=== PATIENT | female | born 1950 | race American Indian/Alaskan Native ===

== ENCOUNTER 2016-09-25 11:25 | Outpatient (CLI) | payer MEDICARE ==
--- NOTE | 2016-09-25 13:19 | XRay Report ---
LUMBAR SPINE WITH OBLIQUES 5 VIEWS: 09/25/16 11:25:00 CLINICAL: Back pain. FINDINGS: Normal vertebral body height and alignment. The disc spaces are normal except for some widening at the L4-5 disc space and a small anterior osteophyte. The pedicles are intact. No fracture. Multi-level facet joint sclerosis. Bilateral neural foraminal stenosis at L4-5 and L5-S1. Heavy calcification of the abdominal aorta. IMPRESSION: Lower lumbar facet joint arthropathy and bilateral neural foraminal stenosis. L4-5 degenerative disc disease.
--- NOTE | 2016-09-25 13:31 | XRay Report ---
Cervical spine 2 views: History: Spinal stenosis. Findings: Osteopenia. Height of vertebral bodies is normal. Marked decrease in height of C3-C4. Sclerotic adjacent articular surfaces with osteophytes suggestive of severe cervical spondylosis. Mild cervical spondylosis at C4-C5 and C5-C6. Normal prevertebral soft tissue. No fracture. Impression: Cervical spondylosis. Most pronounced at C3-C4.
== END 2016-09-25 11:26 | disposition home or self-care (01) ==
LOC: SPVIMAG 11:25
PROVIDERS: ATTEND Internal Medicine
DX: M48.02 Spinal stenosis, cervical region (principal); M48.06 Spinal stenosis, lumbar region; M47.892 Other spondylosis, cervical region; M51.36 Other intervertebral disc degeneration, lumbar region; M12.88 Other specific arthropathies, not elsewhere classified, other specified site; M25.78 Osteophyte, vertebrae; I70.0 Atherosclerosis of aorta; I12.0 Hypertensive chronic kidney disease with stage 5 chronic kidney disease or end stage renal disease; N18.6 End stage renal disease; E78.00 Pure hypercholesterolemia, unspecified
CPT/HCPCS: 72040; 72110

== ENCOUNTER 2020-08-28 16:25 | Emergency (ER) | payer MEDICARE ==
--- NOTE | 2020-08-28 17:40 | Emergency Department Report ---
ED General Adult HPI - General Chief complaint: Medical Clearance Stated complaint: R ARM BLEEDING Time Seen by Provider: 08/28/20 17:37 Source: patient, EMS Mode of arrival: Stretcher Limitations: No Limitations - History of Present Illness Initial comments: 69-year-old female with significant bleeding from the proximal site of her hemodialysis shunt. She was sent to this facility for further evaluation after a clamp was applied. She was left undisturbed for some time while labs were pending. She seemed to have hemostasis with the clamp. However when the clamp was removed the patient had apparent arterial bleeding from the proximal access site. Pressure was applied. Patient had no complaints at the time of my evaluation. Indeed, she was s peaking on her cell phone without distress. She stated this was the first time this is ever happened since her graft was placed [address] Flowers. -: Sudden Severity scale (0 -10): 0 - Related Data Home Medications Medication Instructions Recorded Confirmed Last Taken Aspirin [Aspirin BABY CHEW TAB] 81 mg PO DAILY 04/04/13 07/26/13 07/27/13 Atorvastatin Calcium [Lipitor] 20 mg PO QHS 04/04/13 07/26/13 07/27/13 Cinacalcet HCl [Sensipar] 60 mg PO DAILY 04/04/13 07/26/13 07/27/13 carvediloL [Coreg] 6.25 mg PO DAILY 04/04/13 07/26/13 07/27/13 Insulin Aspart Prot/Aspart(Nf) 30 - 45 units SC BID 07/26/13 07/26/13 07/27/13 [NovoLOG Mix 70/30 VIAL] Pantoprazole [Protonix] 1 tab PO DAILY 07/26/13 07/26/13 07/27/13 Vit B Complx C/Folic Acid/Zinc 1 tab PO Q48HR 07/26/13 07/26/13 07/27/13 [Dialyvite 800-Zinc 15 mg Tab] Previous Rx's Medication Instructions Recorded Last Taken Type Albuterol Mdi (or & Nicu Only) 2 puff IH QID PRN #2 inhalation 04/05/13 Unknown Rx [ProAir HFA Inhaler] Allergies Allergy/AdvReac Type Severity Reaction Status Date / Time No Known Allergies Allergy Verified 06/30/14 11:38 ED Review of Systems ROS: Stated complaint: R ARM BLEEDING Other details as noted in HPI Constitutional: denies: chills, fever Eyes: eye discharge Respiratory: denies: cough, shortness of breath Cardiovascular: denies: chest pain, palpitations Endocrine: no symptoms reported Gastrointestinal: denies: abdominal pain, vomiting Genitourinary: as per HPI (Hemodialysis patient). denies: discharge Musculoskeletal: denies: back pain, joint swelling, arthralgia Skin: denies: rash, lesions Neurological: denies: headache, weakness Hematological/Lymphatic: denies: easy bleeding, easy bruising ED Past Medical Hx - Past Medical History Hx Hypertension: Yes Hx Congestive Heart Failure: Yes Hx Diabetes: Yes Hx Renal Disease: Yes (hemodialysis Friday, Friday) Additional medical history: High cholesterol, sleep apnea, history of pulmonary edema - Surgical History Hx Appendectomy: Yes (2007) Additional Surgical History: Right arm AV shunt. HYSTERECTOMY - Social History Smoking Status: Never Smoker Substance Use Type: None - Medications Home Medications: Home Medications Medication Instructions Recorded Confirmed Last Taken Type Aspirin [Aspirin BABY CHEW TAB] 81 mg PO DAILY 04/04/13 07/26/13 07/27/13 History Atorvastatin Calcium [Lipitor] 20 mg PO QHS 04/04/13 07/26/13 07/27/13 History Cinacalcet HCl [Sensipar] 60 mg PO DAILY 04/04/13 07/26/13 07/27/13 History carvediloL [Coreg] 6.25 mg PO DAILY 04/04/13 07/26/13 07/27/13 History Albuterol Mdi (or & Nicu Only) 2 puff IH QID PRN #2 inhalation 04/05/13 07/26/13 Unknown Rx [ProAir HFA Inhaler] Insulin Aspart Prot/Aspart(Nf) 30 - 45 units SC BID 07/26/13 07/26/13 07/27/13 History [NovoLOG Mix 70/30 VIAL] Pantoprazole [Protonix] 1 tab PO DAILY 07/26/13 07/26/13 07/27/13 History Vit B Complx C/Folic Acid/Zinc 1 tab PO Q48HR 07/26/13 07/26/13 07/27/13 History [Dialyvite 800-Zinc 15 mg Tab] ED Physical Exam - General Limitations: No Limitations General appearance: alert, in no apparent distress - Head Head exam: Present: atraumatic, normocephalic - Eye Eye exam: Present: normal appearance. Absent: scleral icterus - ENT ENT exam: Present: mucous membranes moist - Neck Neck exam: Present: normal inspection - Respiratory Respiratory exam: Present: normal lung sounds bilaterally. Absent: respiratory distress - Cardiovascular Cardiovascular Exam: Present: regular rate, normal rhythm. Absent: systolic murmur, diastolic murmur, rubs, gallop - GI/Abdominal GI/Abdominal exam: Present: soft. Absent: distended, tenderness - Extremities Exam Extremities exam: Present: other (No acute deformity. Bleeding from the proxim al access site. Fistula with good pulse and thrill. Neurovascular exam intact distally.) - Neurological Exam Neurological exam: Present: CN II-XII intact. Absent: motor sensory deficit - Psychiatric Psychiatric exam: Present: normal affect, normal mood - Skin Skin exam: Present: warm, dry, intact, normal color. Absent: rash ED Course Vital Signs 08/28/20 08/28/20 17:14 17:18 Temperature 98.1 F Pulse Rate 70 Respiratory 17 17 Rate Blood Pressure 142/46 [Left] O2 Sat by Pulse 100 100 Oximetry - Reevaluation(s) Reevaluation #1: As above pursestring suture applied after Betadine and lidocaine approximately 4 cc. Excellent hemostasis immediately obtained. Dry gauze dressing applied. Procedure well-tolerated. I spoke with Dr. Mendoza regarding the patient and the above findings. He agreed the patient should be sent home. He asked for Dr. Parr to be called to be informed of the above. However he stated the patient could be discharged. He was paged. 08/28/20 19:48 08/28/20 19:52 ED Medical Decision Making - Lab Data Result diagrams: 08/28/20 17:46 08/28/20 17:46 - Radiology Data Radiology results: report reviewed (Chest x-ray no acute process), image reviewed Critical care attestation.: If time is entered above; I have spent that time in minutes in the direct care of this critically ill patient, excluding procedure time. ED Disposition Clinical Impression: Bleeding from dialysis shunt Qualifiers: Encounter type: initial encounter Qualified Code(s): T82.838A - Hemorrhage due to vascular prosthetic devices, implants and grafts, initial encounter Disposition: DC-01 TO HOME OR SELFCARE Is pt being admited?: No Does the pt Need Aspirin: No Condition: Stable Instructions: Chronic Kidney Disease, Adult, [id number] Additional Instructions: Return any recurrent bleeding. If this occurs apply pressure with gauze. Call EMS. I would not anticipate this happens. Call Dr. Flowers in the a.m. to advise him that a purse string suture was applied to your dialysis shunt proximal side. Referrals: SALOME PARR MD [Staff Physician] - 24 Hours JACQUELINE SORTO MD [Staff Physician] - 2-3 Days Time of Disposition: 19:51
[2020-08-28 18:01] LABS: Basophils # (Auto) 0.1 K/mm3 (0.0-0.1); Eosinophils # (Auto) 0.5 K/mm3 (0.0-0.4); Eosinophils % (Auto) 4.9 % (0.0-4.3); Hematocrit 34.5 % (30.3-42.9); Hemoglobin 11.5 gm/dl (10.1-14.3); Lymphocytes # (Auto) 2.1 K/mm3 (1.2-5.4); Lymphocytes % (Auto) 22.3 % (13.4-35.0); Mean Corpuscular HGB Conc 33 % (30-34); Mean Corpuscular Volume 92 fl (79-97); Monocytes % (Auto) 11.2 % (0.0-7.3); Platelet Count 150 K/mm3 (140-440); Red Blood Count 3.76 M/mm3 (3.65-5.03); Red Cell Distribution Width 17.7 % (13.2-15.2)
[2020-08-28 18:38] LABS: Calcium 8.3 mg/dL (8.4-10.2)
--- NOTE | 2020-08-28 18:51 | XRay Report ---
CHEST 1 VIEW 08/28/2020 5:42 PM INDICATION / CLINICAL INFORMATION: Hypertension. COMPARISON: None available. FINDINGS: SUPPORT DEVICES: None. HEART / MEDIASTINUM: There is mild to moderate cardiomegaly. Pulmonary vasculature is normal. There i s prominent calcification in the aortic arch without aneurysm. LUNGS / PLEURA: No significant pulmonary or pleural abnormality. No pneumothorax. ADDITIONAL FINDINGS: No significant additional findings. IMPRESSION: Cardiomegaly without acute abnormality. Signer Name: Slade Rubio MD Signed: 08/28/2020 6:47 PM Workstation Name: [id number]
[2020-08-28] MEDS ORDERED: LIDOCAINE-MPF (1%) 10 MG/1 ML VIAL 5 ML ONE (19:12)
[2020-08-28 20:51] VITALS: BP 140/85
== END 2020-08-28 20:52 | disposition home or self-care (01) ==
LOC: ED 16:25
DX: T82.838A Hemorrhage due to vascular prosthetic devices, implants and grafts, initial encounter (principal); I11.0 Hypertensive heart disease with heart failure; I50.9 Heart failure, unspecified; E11.9 Type 2 diabetes mellitus without complications; Z90.710 Acquired absence of both cervix and uterus; Z98.890 Other specified postprocedural states; Z79.4 Long term (current) use of insulin; Z79.899 Other long term (current) drug therapy; Y92.89 Other specified places as the place of occurrence of the external cause
CPT/HCPCS: 36415; 71045; 80048; 85025